=== PATIENT | male | born 1965 | race Caucasian/White ===

== ENCOUNTER → 2019-10-04 | Outpatient (CLI) | payer OTHER | LOC: RAD 14:58 | DX: M25.511 Pain in right shoulder (principal) ==

== ENCOUNTER → 2020-06-15 | Outpatient (CLI) | payer OTHER | LOC: SJCVCIMAG 07:41 | PROVIDERS: ATTEND Internal Medicine | DX: E78.5 Hyperlipidemia, unspecified (principal); I10 Essential (primary) hypertension ==

== ENCOUNTER → 2020-08-05 | Outpatient (CLI) | payer OTHER | LOC: ULTRA 10:20 | PROVIDERS: ATTEND Nurse Practitioner | DX: I75.023 Atheroembolism of bilateral lower extremities (principal) ==